=== PATIENT | female | born 1990 | race Two or more races ===

== ENCOUNTER 2016-08-16 03:57 | Emergency (ER) | payer MEDICAID, OTHER ==
[~2016-08-16] VITALS: Ht 152.4 cm; Wt 52.2 kg
[2016-08-16 04:30] LABS: BASOPHILS # (AUTO) 0.1 /CMM (0.0-0.2); DIFF TOTAL % 100 %; EOSINOPHILS # (AUTO) 0.5 /CMM (0.0-0.7); EOSINOPHILS % (AUTO) 9.1 % (0.0-6.0); HEMATOCRIT 36 % (33-45); HEMOGLOBIN 11.4 g/dL (11.5-14.8); LYMPHOCYTES # (AUTO) 2.5 /CMM (0.8-4.8); LYMPHOCYTES % (AUTO) 43.3 % (20.0-44.0); MEAN CORPUSCULAR HEMOGLOBIN 29 PG (26.0-33.0); MEAN CORPUSCULAR HGB CONC 32 g/dl (31.0-36.0); MEAN CORPUSCULAR VOLUME 89 fL (82-100); MONOCYTES # (AUTO) 0.8 /CMM (0.1-1.30); MONOCYTES % (AUTO) 13.1 % (2.0-12.0); NEUTROPHILS # (AUTO) 1.9 /CMM (1.8-8.9); NEUTROPHILS % (AUTO) 33.5 % (43.0-81.0); PLATELET COUNT (AUTO) 328 /CMM (150-450); RED BLOOD CELL COUNT(AUTO) 4.01 MIL/uL (4.0-5.2); WHITE BLOOD COUNT (AUTO) 5.8 K/uL (4.3-11.0)
[2016-08-16 05:45] LABS: CALCIUM, SERUM 9.3 mg/dL (8.5-10.1); POTASSIUM 5.9 mmol/L (3.5-5.1)
[2016-08-16 05:47] LABS: CREATININE 7.6 mg/dL (0.6-1.3)
[2016-08-16] MEDS ORDERED: SODIUM POLYSTYRENE SULFONATE 15 G/60 ML BOTTLE PO ONE (06:00)
[2016-08-16] MEDS ORDERED: SODIUM POLYSTYRENE SULFONATE 15 G/60 ML BOTTLE ONE (06:37)
[2016-08-16 10:39] VITALS: BP 149/75
== END 2016-08-16 10:40 | disposition home or self-care (01) ==
LOC: ER 03:58
DX: E87.5 Hyperkalemia (principal); Z99.2 Dependence on renal dialysis; E11.9 Type 2 diabetes mellitus without complications
CPT/HCPCS: 36415; 80048; 82962; 85025; 99285; A4606; Z7610